=== PATIENT | female | born 1990 | race Caucasian/White ===

== ENCOUNTER 2022-06-29 16:04 | Outpatient (CLI) | payer OTHER, SELFPAY ==
--- NOTE | 2022-06-29 16:00 | CRLHL7_ITS ---
For Patients: As a result of the Century Cures Act, medical imaging exams and procedure reports are released immediately into your electronic medical record. You may view this report before your referring provider. If you have questions, please contact your health care provider. INDICATION: Evaluate anatomy. COMPARISON: none TECHNIQUE: Real time raygoza scale imaging of the fetus was performed as well as color Doppler analysis of the umbilical vessels. FINDINGS: Sonographic imaging demonstrates a single living intrauterine gestation. Fetus demonstrates a regular cardiac rate of 150 beats per minute. Fetus has a vertex position. The placenta lies anteriorly without evidence of placenta previa. The edge of the placenta is located 7.3 cm from the internal cervical os. Amniotic fluid volume appears normal. Single deepest vertical pocket: 4.2 cm. The cervix is closed and measures 5.2 cm in length. The composite ultrasound gestational age is calculated at 20 weeks 5 days with an estimated sonographic due date of 11/11/2022. The estimated weight is 356 grams which lies at the 32nd %. The following biometric measurements were obtained: Biparietal diameter: 4.8 cm/20 weeks 4 days 43rd% Head circumference: 18.0 cm/20 weeks 3 days 28th% Abdominal circumference: 15.0 cm/20 weeks 2 days 28th% Femur length: 3.4 cm/20 weeks 6 days 44th% The HC/AC ratio measures: 1.20 range (1.06-1.25) On anatomic survey, there is a normal appearance of the cerebral ventricles, cavum septi pellucidi, cisterna magna and cerebellum. The nose, lips, and facial profile appear normal. The cervical, thoracic and lumbar spine are well visualized and appear normal. There is a normal four-chamber heart view and the left and right ventricular outflow tracts appear normal. The diaphragm and stomach appear normal. The kidneys and bladder also appear normal. There is a normal three-vessel cord and cord insertion site. The four extremities appear normal. IMPRESSION: Normal OB ultrasound exam with concordance of clinical and sonographic dating. No intrinsic abnormalities noted on anatomic survey. Dictated by Hugo Logan MD @ 06/30/2022 8:59:07 AM (Electronically Signed)
--- OUTSIDE RECORDS SUMMARY | 2022-06-29 16:08 | XMS_ITS | Continuity of Care Document ---
:[address] [facility] Address Unavailable , Care Team Providers Name Role Phone Not Listed, Provider Primary Care Physician Unavailable Encounter [employer] Date(s): 04/01/22 - 04/01/22 [facility] Discharge Disposition: Home/Self Care Attending Physician: Sunil Montaño MD Admitting Physician: Sunil Montaño MD Care Team PersonnelName: Not Listed, Provider
--- OUTSIDE RECORDS SUMMARY | 2022-06-29 16:08 | XMS_ITS | Clinical Summary ---
:1990 Author Organization [facility] Address [address] [place] [address] Care Team Providers Name Role Phone Unavailable Primary Care Provider Unavailable Source Comments Patient records contain information from all sites at [facility]. For routine questions regarding patient records, call [phone] during business hours, M-F 8:00 AM - 5:00 PM Central Time. Record requests for emergency care only can be directed to [phone] at any time.[facility] Social History Tobacco Use Types Packs/Day Years Used Date Smoking Tobacco: Never Assessed Sex Assigned at Date Recorded Not on file Plan of Treatment Health Maintenance Due Date Last Done Comments Cervical Cancer Screening 1990 HIV Screening 1990 Hepatitis B Vaccines (1 of 1990 3 - 3-dose series) Hepatitis C Screening 1990 COVID-19 Vaccine (#1) 05/30/1991 DTaP,Tdap,and Td Vaccines 04/10/2008 04/09/2008, 04/27/1996 , (6 - Tdap) 06/03/1992, Additional history exists Depression Screening 08/08/2021 (Annual PHQ-2) Influenza Vaccine (#1) 2022 Pneumococcal vaccine (0-64 Aged Out No lo nger eligible years) based on patient 's age to complete this topic Insurance Payer Benefit Plan / Subscriber ID Effective Phone Address T ype Group Dates [facility] [id number] 2019-Pres [phone] [address] PPO OPEN ACCESS ent [address] [place] [address]
--- OUTSIDE RECORDS SUMMARY | 2022-06-29 16:08 | XMS_ITS | Clinical Summary ---
:1990 Author Organization [facility] [place] [address] Care Team Providers Name Role Phone Lucy Adkins MD Primary Care Provider Unavailab le Allergies Active Allergy Reactions Severity Noted Date Comments Amoxicillin-Pot Itching Clavulanate Fluticasone Other - Describe In 04/25/2007 voice ch kelley, Comment Field hoarseness, gl ands felt swollen Medications Medication Sig Dispensed Refills Start Date End Date Status Take 1 tablet by 0 04/16/2014 Ac tive vitamin-folic acid 1 mouth once daily. mg ( VITAMIN) tablet/capsule Breast Pump - Electric breast 1 Device 0 10/10/2018 Active PurchaseIndications: pump for home use. Normal spontaneous Gestation age at vaginal delivery delivery: 39.5 weeks. Reason for need: . Length of need: 12 months Active Problems Problem Noted Date Normal spontaneous vaginal delivery 05/24/2016 Supervision of normal intrauterine in multig ravida in first 02/04/2016 trimester Overview: A+. First AROM and 2nd degree juan carlos myrtle. Nitroglycerin to help with retained placenta. Second delivery uncomplicated. Rashad Fernandez RN at [facility] GBS+ Cefazolin Migraine, unspecified, without mention of intractable migraine without 06/16/2007 mention of status migrainosus Closed fracture of unspecified phalanx or phalanges of hand 02/23/2007 Overview: avulsion fracture, flexor tendon, middle phalanx, left 5th finger Allergic rhinitis, cause unspecified 02/20/2007 Resolved Problems Problem Noted Date Resolved Date Normal spontaneous vaginal delivery 10/08/201405/08 Anemia complicating 06/20/2014 03/27/2018 Supervision of normal first 04/16/2014 Overview: : Rashad GBS positive- review sensitivies- only s ensitive to ceftriaxone and vanc that the patient can take. Resistant to clindamycin. Decline flu due to egg allergy. Declines screening tests. Immunizations Name Administration Dates Next Due DTP-HIB 06/03/1992, 06/05/1991, 03/28/1991, 01/24/1991 DTaP 04/27/1996 HIB PRP-D (ProHIBIT) 03/07/1992 Hepatitis B (Peds) 12/17/1996, 08/22/1992, 07/18/1992 MMR 03/07/1992 Oral Polio Vaccine 04/27/1996, 06/03/1992, 03/28/1991, 01/24/1991 Td, Preservative Free (age >= 7 04/09/2008 Years) Tuberculin (PPD) 03/29/2014, 02/09/2013 Family History Medical History Relation Name Comments Good Health Brother 1 Asthma Brother 2 Good Health Father Cancer Maternal Grandfather type? Good Health Mother Good Health Sister Relation Name Status Comments Brother 1 Brother 2 Father Maternal Grandfather Mother Sister Social History Tobacco Use Types Packs/Day Years Used Date Never Smoker Smokeless Tobacco: Never Used Tobacco Cessation: Counseling Given: Yes Alcohol Use Standard Drinks/Week Comments No 0 (1 standard drink = 0.6 oz pure alcoho l) Sex Assigned at Date Recorded Not on file Obstetrics History Para Term AB IAB SAB Ectopic Multiple Living Live Births 3 3 3 0 0 0 0 0 0 3 3 Date Outcome GA Total Labor/2nd/3rd Weight Sex Delivery Anes PTL Nicol A 1 A5 Name Clin Labor 10/08 Term 40w 3.57 kg M Vag April 9 9 0d (7 lb TANIKA Waters 13.9 (ASHL oz) EY) Delivery Location: [facility] 05/24/2016 Term 39w1d 3.24 kg M Vag None N Living [address] (7 lb DAYANARA Mo hrbacher 2.4 oz) Complications: None Delivery Location: [facility] 10/09/2018 Term 39w4d 0h 3.29 F Vag None N Living 6 8 S IMONES,BG Mohrbacher 16m/0h kg (7 DAYANARA 13m lb 4 oz) Complications: None Delivery Location: [facility] ([facility]) Last Filed Vital Signs Vital Sign Reading Time Taken Comments Blood Pressure 106/58 12/04/2018 3:06 PM CDT Pulse 78 12/04/2018 3:06 PM CDT Temperature 36.7 ??C (98 ??F) 10/09/2018 7:50 PM TRANSFER TABLE OPERATOR Respiratory Rate 18 10/09/2018 7:50 PM TRANSFER TABLE OPERATOR Oxygen Saturation 100% 10/08/2018 2:16 PM TRANSFER TABLE OPERATOR Inhaled Oxygen Concentration - - Weight 64.9 kg (143 lb) 12/04/2018 3:06 PM CDT Height 160 cm (5' 3) 10/08/2018 2:27 PM TRANSFER TABLE OPERATOR Body Mass Index 25.33 10/08/2018 2:27 PM TRANSFER TABLE OPERATOR Plan of Treatment Health Maintenance Due Date Last Done Comments COVID-19 vaccine series (#1) 05/30/1991 Tdap 2001 Hepatitis C screening for age 0411/28/2008 18-79 Tetanus booster 04/09/2018 04/09/2008 BMI (ht and wt on same day) for 09/15/2019 09/15/2018, 03/09, age 18+ 03/27/2018, Additional history exists Depression screening for age 12+ 12/05/2019 12/04/2018, , 06/21/2016 Pap test for age 21-65 03/27/2021 03/27/2018, 04/16/2014 Influenza for age 9-49 04/08/2022 HIV for age 15-65 Completed 03/27/2018, 11/07/2015, 04/04/2014 Results Not on filefrom Last 3 Months Insurance Payer Benefit Plan / Subscriber ID Effective Dates Phone Addre ss Type Group WC WORKERS CAMILA PATRICK [id number] 2020-Prese [address] [place] [address] HEALTH [employer]INCTIONS [id number] 2017-Presen [id number] [place] [address] SherryDayanara Avina Workers Comp Self 1990 [address] (Home) [place] [id number] HaseeblanieDayanara Avina Personal/Family Self 1990 [id number] (Home) [place] [id number] Advance Directives Latest Code Status on File Code Status Date Activated Date Inactivated Comments Full Code 10/09/2018 3:15 AM 10/10/2018 3:18 PM Full Code 05/24/2016 6:58 AM 05/25/2016 3:57 PM Full Code 05/23/2016 10:41 PM 05/24/2016 6:58 AM Code Status Discussion: Not Discussed Full Code 05/23/2016 9:56 PM 05/23/2016 10:41 PM Code Status Discussion: Not Discussed Full Code 10/07/2014 4:47 PM 10/08/2014 5:23 AM Care Teams Plastic Mould Maker Relationship Specialty Start Date End Date Lucy Adkins MD PCP - General Family Practice 04/26/19
--- OUTSIDE RECORDS SUMMARY | 2022-06-29 16:09 | XMS_ITS | Encounter Summary ---
:1990 Author Organization [facility] Address [address] [place] [address] Care Team Providers Name Role Phone Unavailable Primary Care Provider Unavailable Encounter Details Date Type Department Care Team Description 09/19/2001 Hospital Encounter HX [facility] ENT Koko Grove M.D. 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 Erik Nichole [id number] 09-19-01CC: Dr. Krause in [facility].Dayanara is a pleasant 10 ? y/o female who presents with her mom today self referred.Dayanara and her mom give a history of chronic sore throat since the fall. She apparently had much more brief sore throat the previous winter but really was asymptomatic through the summer. Mom says she compla ins of a sore throat on a daily basis. It varies from mild to moderately severe. She home schools s o has not missed any school from this and is usually not unwell. She does occasionally have some ear pain with this. There is some mild relief with Tylenol. She was treated with a 10 day course with a subsequent daily dose for a month of Keflex with no convincing improvement in her sore throat. (Pre scribed July 31). No rhinorrhea or nasal obstruction. She does have some mild discomfort with s wallowing with her more painful episodes but otherwise no dysphagia or shortness of breath. She has no trouble swallowing or with chronic loud snoring. No history of apneic events. No concerns about her voice.REVIEW OF SYSTEMS:Constitutional - some fatigue, otherwise, no fever, chills or weight l oss.Neurologic - she has had headaches in the past which were evaluated at her primary care facility . No other neurologic symptoms.GI - negative. No heartburn.PAST MEDICAL HISTORY: She is otherwi se generally well.PAST SURGICAL HISTORY: None.FAMILY HISTORY: No family history of bleeding disor ders or anesthetic trouble.SOCIAL HISTORY: She is home schooled.MEDICATIONS: None.ALLERGIES: AU GMENTIN (hives).ON EXAMINATION: Dayanara looks well.Vitals - noted.Otoscopic - healthy mobile TM's bilaterally. No effusion.Nose - patent, healthy mucosa.Oral cavity - normal.Oropharynx - shows g enerous 2+ scarred noninflamed tonsils bilaterally.MIRROR EXAM:Nasopharynx - shows generous benign appearing adenoid tissue, noninflamed. No history of nasal obstruction. Vocal cords are healthy an d mobile. The piriforms are not visualized.Neck - no cervical lymphadenopathy or masses.Thyroid an d salivary glands - no enlargement.Voice - normal. ASSESSMENT:1. Chronic sore throat - negative S trep test in July.PLAN:1. Discussed options of continued observation to see if she resolves sp ontaneously again this summer.2. Option of 21 day course of Clindamycin was offered. I wouldn't rec ommend tonsillectomy at this time but if she improves and recurs following Clindamycin, would be bett er indication that tonsillectomy may provide some improvement. 3. I also asked them to consider how severe and problematic these symptoms are for her. They would like to try the Clindamycin however.4. Risks of GI upset and diarrhea were discussed in which case if this persists after holding the medic ation, she needs to be assessed. Will try 3 week course and I asked them to contact me if she has co ntinued problems.5. Mom requested that I send a copy to Dr. Krause, her primary care physician.Oralia Grove M.D./Reyes: 09-19-01T: 02-18-02 Source: [facility] Document Id: [id number] documented in this encounter Plan of Treatment Not on filedocumented as of this encounter Visit Diagnoses Not on filedocumented in this encounter
--- OUTSIDE RECORDS SUMMARY | 2022-06-29 16:09 | XMS_ITS | Encounter Summary ---
:1990 Author Organization [facility] Address [address] [place] [address] Care Team Providers Name Role Phone Unavailable Primary Care Provider Unavailable Encounter Details Date Type Department Care Team Description 03/17/2006 Hospital Encounter [facility]X [facility] Zena Lara M.D. Social History Tobacco Use Types Packs/Day Years Used Date Smoking Tobacco: Never Assessed Sex Assigned at Date Recorded Not on file documented as of this encounter Progress Notes Sonia Lara M.D. - 03/17/2006 3:40 PM CDT [id number] CLINIC ENCOUNTER SUBJECTIVE: Dayanara Valencia is a 15-year-old who comes in today with concerns about left lower leg pain. This was particularly concerning to the family because she had a spiral fracture of the left tibia 2 1/2 years ago after slipping on the ice. She had some difficulty with healing. She was followed by Dr. Emir Moya of Orthopedics in [place] and previous care was in [place]. She seemed to heal entirely although they have noted a leg length discrepancy. She had no noted acute injury or trauma. No sudden change in activity level. No limb eversion. She denies feeling ill. No fevers, chills, sweats, rashes, or other joint pain. She has been limping for about four days and using crutches. OBJECTIVE: GENERAL: On physical exam, she is alert and quite comfortable. MUSCULOSKELETAL: She does have a leg length discrepancy noted, not measured accurately but approximately 1 inch. She has full range of motion at the hips, knees, and ankles without any discomfort. She has some pain to deep palpation laterally on the leg. There is no superficial skin changes, bruising, edema, and soles of the feet are unremarkable. IMAGING: The comparison films are not available. AP (anteroposterior) and lateral view of the left leg shows no change in the bony cortex. No evidence of improper healing or new fracture. ASSESSMENT: Leg pain of unknown etiology. Leg length discrepancy. PLAN: We discussed continuing symptomatic treatment and crutches for non-weight bearing and weight bearing only if tolerated. Use ibuprofen for pain. We will await the radiologists formal reading of the x-ray. Offered referral to [facility] for discussion of her leg length discrepancy. Outline briefly the main options for significant leg length discrepancy with shoe-lift or shoe compensation being the treatment of choice with lesser leg length discrepancy. If her pain fails to resolve, we will try to facilitate sooner orthopedic examination. VITAL SIGNS: HEENT: NECK: LUNGS: CARDIOVASCULAR: ABDOMEN: EXTREMITIES: SKIN: Doug Pate/darlene cc: Source: [facility] Document Id: [id number] Electronically signed by Conversion, [facility] Security Agent [id number] at 01/10/2017 4:44 PM CDT Sonia Lara M.D. - 03/17/2006 3:40 PM CDT [id number] Document Contains Addenda Insert dictation. Addendum: Menarche at time of previous fracture 2.5 years ago - discussed relevance to growth. Source: [facility] Document Id: [id number] Electronically signed by Conversion, [facility] Security Agent [id number] at 01/10/2017 4:44 PM CDT documented in this encounter Plan of Treatment Not on filedocumented as of this encounter Visit Diagnoses Not on filedocumented in this encounter
--- OUTSIDE RECORDS SUMMARY | 2022-06-29 16:09 | XMS_ITS | Encounter Summary ---
:1990 Author Organization [facility] Address [address] [place] [address] Care Team Providers Name Role Phone Unavailable Primary Care Provider Unavailable Encounter Details Date Type Department Care Team Description 05/31/2021 Admin Visit Department of Family Koko Vargas, Medicine, [facility] in [facility] [address] [facility] [address] [place] [address] [place] [address] [phone] Social History Tobacco Use Types Packs/Day Years Used Date Smoking Tobacco: Never Assessed Sex Assigned at Date Recorded Not on file documented as of this encounter Plan of Treatment Not on filedocumented as of this encounter Visit Diagnoses Not on filedocumented in this encounter Additional Health Concerns Infection Onset Date Last Indicated Resolved Time COVID19 Pending 05/31/2021 05/31/2021 06/01/2021 1:53 PM CDT documented as of this encounter
--- OUTSIDE RECORDS SUMMARY | 2022-06-29 16:09 | XMS_ITS | Encounter Summary ---
:1990 Author Organization [facility] Address [address] [place] [address] Care Team Providers Name Role Phone Unavailable Primary Care Provider Unavailable Encounter Details Date Type Department Care Team Description 07/08/2003 Hospital Encounter HX [facility] ENT Koko Grove M.D. [address] [place], [place] [phone] (Wo rk) Social History Tobacco Use Types Packs/Day Years Used Date Smoking Tobacco: Never Assessed Sex Assigned at Date Recorded Not on file documented as of this encounter Progress Notes Conversion, Historical Provider Ser - 07/08/2003 9:15 AM CST [id number] Addended by: MARTINA OVERTON on: 07/12/2003,8:39 AM Comment: TranscriptionModules accepted: Robert nj NotesSUBJECTIVE: Dayanara returns to clinic today for routine postop check for tonsillectomy 06/19/2003 for chronic tonsillitis.This 12 year old had a couple of rough days with nausea followin g the surgery but that resolved early on and she is doing fantastic now, back to normal activity.Scarlett ngo did have an episode of Dixon in the last year which was excluded from consideration for her surgery. Some preoperative blood work indicated and Alk Phos elevated at 321 and will have her recheck this with her Primary doctor.OBJECTIVE: On examination, tonsillar fossae are very well healed. IMPRES MARINA:1. They have no concerns.2. I will see her back on a prn basis.Koko Groev M.D., [facility] /kaaD: 07/08/2003T: 07/12/2003CC: Jovana Mathews. Source: [facility]FPORTHXTRANSXSYS Document Id: [id number] documented in this encounter Miscellaneous Notes Miscellaneous - Conversion, Historical Provider Ser - 07/08/2003 9:15 AM STAMP PRESSER [id number] July 08, 2003 Dr. Sonam Engle [address] [place] [address] RE: Dayanara Valencia [address] [place] [address] EMR# [id number] Dear Dr. Engle: I saw Dayanara back for routine postop check following her tonsillectomy. She is doing great today andappears well healed. Preop evaluation indicated an elevated Alk phos at 321 and I would recommend that she follow up withyou for consideration of any repeat lab work or investigations in this regard. Kindest Regards, Bambi Vail., [facility] Otolaryngology - Head and Neck Surgery /[facility] Enclosure Source: [facility]FP[facility]XTRANSXRTFSYS Document Id: [id number] documented in this encounter Plan of Treatment Not on filedocumented as of this encounter Visit Diagnoses Not on filedocumented in this encounter
--- OUTSIDE RECORDS SUMMARY | 2022-06-29 16:09 | XMS_ITS | Encounter Summary ---
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 [id number], ASHLEY : 90PROCEDURE/OPERATIVE REPORTPREOPERATIVE DIAGNOSIS:Chronic tonsillitis.POSTOPERATIVE DIAGNOSIS:Chronic tonsillitis. PROCEDURE: TONSILLECTOMYSurgeon: Dr. Grove.INDICATIONS: Dayanara has a several year history of sore throats. She did have an episode of mono earlier in the year which seems to have resolved, henley kenton she is back to her baseline low grade sore throats. Options were discussed including further obs ervation with possible spontaneous resolution or tonsillectomy and they wish to proceed with tonsille ctomy after discussion with the risks and benefits. She had already failed a 21 day course of Clinda mycin due to GI upset and did not wish to proceed with further antibiotics. Preop platelets 239,000, hemoglobin 12.9, INR 1.04, PTT 29.3. Liver function tests were normal with the exception of alkalin e phosphatase at 321. PROCEDURE: The patient was brought to the operating room and placed under ge neral anesthesia. In supine position she was intubated and draped in a routine fashion for tonsillect cesar. The table was turned. Under headlight illumination the oral gag retractor was placed, engaged a nd suspended from the Wilkerson tray. Starting on the right the tonsil was medialized with a grasping for ceps. Blunt, sharp and bipolar cautery dissection were used to identify the tonsillar fossa and the tonsil was dissected from superior to inferior along its capsule. There was a fair degree of scarrin g. The tonsil was removed and sent for pathology. The left tonsil was removed in an identical fas hion. Estimated blood loss was approximately 15 ml. She was allowed to lighten and was she was extub ated in the operating room. Koko Grove M.D. [facility]EROzzie/Tirso: 06/19/03T: 06/19/03 Source: [facility] RWHXTRANSXSYS Document Id: [id number] documented in this encounter Plan of Treatment Not on filedocumented as of this encounter Visit Diagnoses Not on filedocumented in this encounter
--- OUTSIDE RECORDS SUMMARY | 2022-06-29 16:09 | XMS_ITS | Encounter Summary ---
:1990 Author Organization [facility] Address [address] [place] [address] Care Team Providers Name Role Phone Unavailable Primary Care Provider Unavailable Encounter Details Date Type Department Care Team Description 07/08/2003 Hospital Encounter HX [facility] ENT Provider, Historic al Social History Tobacco Use Types Packs/Day Years Used Date Smoking Tobacco: Never Assessed Sex Assigned at Date Recorded Not on file documented as of this encounter Miscellaneous Notes Telephone Encounter - Conversion, Historical Provider Ser - 07/08/2003 12:00 AM CST [id number] >> BELLO BURRIS [facility] Jul 08, 2003 3:25 PM >> CALL RECEIVED. Contact: Mom called per request of Dr Grove to remind her to follow up at PCP in [place] regarding Vishal alkaline phosphatase abnormal lab Source[facility] Document Id: [id number] documented in this encounter Plan of Treatment Not on filedocumented as of this encounter Visit Diagnoses Not on filedocumented in this encounter
--- OUTSIDE RECORDS SUMMARY | 2022-06-29 16:09 | XMS_ITS | Encounter Summary ---
:[address] [facility] Address [address] [place] [address] Care Team Providers Name Role Phone Unavailable Primary Care Provider Unavailable Encounter Details Date Type Department Care Team Description 12/09/2008 Hospital Encounter [facility] Jeimy Aragon M.D. [address] [place], [place] [phone] (Wo rk) Social History Tobacco Use Types Packs/Day Years Used Date Smoking Tobacco: Never Assessed Sex Assigned at Date Recorded Not on file documented as of this encounter Progress Notes Heber Aragon M.D. - 12/09/2008 2:20 PM CDT [id number] CLINIC ENCOUNTER HISTORY: Dayanara is an 18-year-old woman who is here in regards to both of her thumbs. She sustained an injury to both of her thumbs when she got a cat bite near the base near the region just proximal to metacarpophalangeal joints. The right one had an injury to it first and subsequently the left one became injured. The right has remained more stiff and painful for her since that time. She had seen a hand surgeon in the past which had suggested an MRI of her hand and wrist but felt there was nothing to further treat this other than with some exercises. She did these exercises but the stiffness at the metacarpophalangeal joints have remained. She's had other joints that have been aching and painful on a regular basis including her wrist as well as persistent troubles with other upper extremity joints being stiff and painful. She denies having any history of Lyme's disease or tick bite that she is aware of as well. PHYSICAL EXAM: Examination of her thumbs - there is no significant swelling appreciated. There is tenderness to palpation over the metacarpophalangeal joint. There is some slight limitation of motion at flexion of this joint. Bradford's test is negative and there is no tenderness overlying the radial styloid. She has full extension of the metacarpophalangeal joints bilaterally. RADIOGRAPHS: X-rays of both of her thumbs are obtained today demonstrate no abnormality of either thumbs at the IP or metacarpophalangeal joints. ASSESSMENT AND PLAN: Dayanara is an 18-year-old woman who has persistent troubles with pain at the metacarpophalangeal joints of both of her hands with the right worse than the left. At this point in time I would have her obtain a sed rate, CRP, rheumatoid factor, Lyme's screen and to see me back after this is obtained. We will discuss continuing treatment options. If all of her laboratory tests are negative, we can consider an injection of a corticosteroid to the area of maximal pain to see if that improves her symptoms. She had this done on the left side and that seemed to improve things substantially and we might consider that for the right side. Otherwise referral on to see a hand and wrist specialist or possibly a fire watchman depending on the laboratory findings might be suggested. We will see her back in another week or two after her brother has follow up in regards to an MRI of his elbow. The patient's visit today was greater than 20 minutes long with more than half of this counseling in regards to treatment options for her persistently painful thumbs. Heber Aragon M.D. DAMARI/floridalma cc: Source: [facility] RWHXTR[facility]SYS Document Id: [id number] Electronically signed by Fior, [facility] Motorboat Mechanic Helper [id number] at 01/09/2017 4:25 PM CDT documented in this encounter Plan of Treatment Not on filedocumented as of this encounter Visit Diagnoses Not on filedocumented in this encounter
--- OUTSIDE RECORDS SUMMARY | 2022-06-29 16:09 | XMS_ITS | Encounter Summary ---
:1990 Author Organization [facility] Address [address] [place] [address] Care Team Providers Name Role Phone Unavailable Primary Care Provider Unavailable Encounter Details Date Type Department Care Team Description 09/27/2001 Hospital Encounter HX [facility] Koko Hayes M.D. [address] [place] [phone] (Wo rk) Social History Tobacco Use Types Packs/Day Years Used Date Smoking Tobacco: Never Assessed Sex Assigned at Date Recorded Not on file documented as of this encounter Miscellaneous Notes Telephone Encounter - Conversion, Historical Provider Ser - 09/27/2001 12:00 AM CST [id number] >> BELLO Hurd Sep 27, 2001 4:38 PM >> CALL RECEIVED. Contact: phone call and results given of negative strep culture, follow up as needed per Dr Grove Source: [facility] Document Id: [id number] documented in this encounter Plan of Treatment Not on filedocumented as of this encounter Visit Diagnoses Not on filedocumented in this encounter
--- OUTSIDE RECORDS SUMMARY | 2022-06-29 16:09 | XMS_ITS | Encounter Summary ---
:1990 Author Organization [facility] Address [address] [place] [address] Care Team Providers Name Role Phone Unavailable Primary Care Provider Unavailable Encounter Details Date Type Department Care Team Description 03/24/2006 Hospital Encounter HX NO MAPPING Provider, Historical Social History Tobacco Use Types Packs/Day Years Used Date Smoking Tobacco: Never Assessed Sex Assigned at Date Recorded Not on file documented as of this encounter Plan of Treatment Not on filedocumented as of this encounter Visit Diagnoses Not on filedocumented in this encounter
--- OUTSIDE RECORDS SUMMARY | 2022-06-29 16:09 | XMS_ITS | Encounter Summary ---
:1990 Author Organization [facility] Address [address] [place] [address] Care Team Providers Name Role Phone Unavailable Primary Care Provider Unavailable Encounter Details Date Type Department Care Team Description 12/27/2008 Hospital Encounter HX [facility] Jeimy Aragon M.D. [address] [place], [place] [phone] (Wo rk) Social History Tobacco Use Types Packs/Day Years Used Date Smoking Tobacco: Never Assessed Sex Assigned at Date Recorded Not on file documented as of this encounter Progress Notes Heber Aragon M.D. - 12/27/2008 10:20 AM CDT [id number] CLINIC ENCOUNTER HISTORY: Dayanara is an 18-year-old girl who is here in regard to her thumbs. She has had problems with bilateral thumb pain after a camp injury. The left one has been somewhat better than the right and the left one she previously had an injection to. Most of the pain seems to be around the MCP joint and slightly distal to this. There is not any catch appreciated to the thumb. We sent her for some laboratory values and these were discussed with her today including a Lyme titer as well as some other screening labs and these were all negative. PHYSICAL EXAMINATION: Examination of her right thumb: She has significant tenderness directly overlying the dorsum of the thumb overlying the MCP joint as well as the IP joint. Range of motion is quite good, however. ASSESSMENT AND PLAN: Dayanaar is an 18-year-old girl who has persistent troubles with thumb pain. My suggestion is to try a cortisone injection in this area of maximal pain near the MCP (metacarpophalangeal) joint and see if she gets resolution of her symptoms as she has had improvement on the contralateral side but also referring her on to see Dr. Mcknight as I am not sure where this pain is coming from clearly. Her thumb was prepped with iodine. The needle was then placed in the area of maximal tenderness. An injection of 0.5 mL of lidocaine and 0.5 mL of Decadron were placed into the tendon in this region. She tolerated this well. We will plan to have her set up an appointment to see Dr. Mcknight in the future to evaluate this persistent pain. Heber Aragon M.D. [facility]/law cc: Source: [facility]ANTSHXTRANSXSYS Document Id: [id number] Electronically signed by Conversion, [facility] Carbonizer Tester [id number] at 01/09/2017 4:25 PM CDT documented in this encounter Plan of Treatment Not on filedocumented as of this encounter Visit Diagnoses Not on filedocumented in this encounter
--- OUTSIDE RECORDS SUMMARY | 2022-06-29 16:09 | XMS_ITS | Encounter Summary ---
:1990 Author Organization [facility] Address [address] [place] [address] Care Team Providers Name Role Phone Unavailable Primary Care Provider Unavailable Encounter Details Date Type Department Care Team Description 05/13/2015 Hospital Encounter HX [facility] Jeevan Campos M .D., M.P.H. [address] [place] [phone] (Wo rk) Social History Tobacco Use Types Packs/Day Years Used Date Smoking Tobacco: Never Assessed Sex Assigned at Date Recorded Not on file documented as of this encounter Nursing Notes Lucy Arevalo L.PLauraN. - 05/13/2015 2:02 PM CDT Nurse Only Documentation Nurse Only Documentation Entered On: 05/13/2015 14:02 CDT Performed On: 05/13/2015 14:02 CDT by LUCY AREVALO LPN Nurse Only Documentation Nurse Only Visit Documentation : Pre employment uds for [employer]. Uneventful collection. LUCY AREVALO LPN - 05/13/2015 14:02 CDT Source: [employer] [facility] [employer] [facility] POWERCHART Document Id: [id number]!3 documented in this encounter Plan of Treatment Not on filedocumented as of this encounter Visit Diagnoses Not on filedocumented in this encounter
--- OUTSIDE RECORDS SUMMARY | 2022-06-29 16:09 | XMS_ITS | Encounter Summary ---
:1990 Author Organization [facility] Address [address] [place] [address] Care Team Providers Name Role Phone Unavailable Primary Care Provider Unavailable Encounter Details Date Type Department Care Team Description 08/08/2008 Hospital Encounter HX NO MAPPING Provider, Historical Social History Tobacco Use Types Packs/Day Years Used Date Smoking Tobacco: Never Assessed Sex Assigned at Date Recorded Not on file documented as of this encounter Miscellaneous Notes Miscellaneous - Fior, Historical Provider Ser - 08/08/2008 12:00 AM DEBURRER [id number] 06/27/2009 - Records faxed/mailed to Dr Jose Elias Kamara, [facility] @[phone], and mailedw/[employer] of [employer], [place], [place]. Source: [facility]XRTFS[facility] Document Id: [id number] documented in this encounter Plan of Treatment Not on filedocumented as of this encounter Visit Diagnoses Not on filedocumented in this encounter
--- OUTSIDE RECORDS SUMMARY | 2022-06-29 16:09 | XMS_ITS | Encounter Summary ---
:1990 Author Organization [facility] Address [address] [place] [address] Care Team Providers Name Role Phone Unavailable Primary Care Provider Unavailable Encounter Details Date Type Department Care Team Description 05/03/2003 Hospital Encounter HX [facility] ENT Koko Grove M.D. [address] [place], [place] [phone] (Wo rk) Social History Tobacco Use Types Packs/Day Years Used Date Smoking Tobacco: Never Assessed Sex Assigned at Date Recorded Not on file documented as of this encounter Progress Notes Conversion, Historical Provider Ser - 05/03/2003 1:30 PM CDT [id number] Addended by: BRODY OCHOA on: 05/13/2003,11:30 AM Comment: TranscriptionModules accepted: Angelo flores Anthony returns to the clinic today with her mom for follow-up of her chronic sore throats. I saw her last September 2001 for chronic sore throat which had previously been at least six months b ut mom felt even longer dating back probably at least a couple of years now. She continued to have a very frequent mild to moderate sore throats the subsequent year. It would often drag her down. She was home-schooled and did not miss any school but she didn't feel well. It would come and go. She has had most often negative strep tests. She is followed by Dr. Engle in [place]. They are not sure i f they tried the 21-day course of Clindomycin at my last visit but she has had some severe GI upset w ith antibiotics and is very reluctant to use anymore if not absolutely necessary.She did have [place] ucleosis diagnosed in the spring. She has felt well in that regard for several months; however is dimas k to her baseline frequent/chronic sore throats. Today she presents with a two- day exacerbation of sore throat, particularly on the right moderate severity, with some increased nasal congestion.REVI EW OF SYSTEMS:Hem: No history of easy bruising or bleeding problems. GI: Very infrequent heartburn. PAST MEDICAL HISTORY:Otherwise healthy. No history of heart or lung disease. No asthma, murmurs, etc. PAST SURGICAL HISTORY:None.FAMILY HISTORY:No history of coagulopathy or general anesthetic problems. No malignant hypothermia. ON EXAMINATION:General: She looks well. Otoscopic: Normal. Nose: Mild nasal congestion and inflammation. Some scant mucous.Oral Cavity: Normal.Oropharynx: 2+ irregular scared tonsils bilaterally. No acute inflammation or purulence. The right tonsil is swabbed . Neck: No cervical lymphadenopathy or masses. ASSESSMENT:Chronic sore throat.PLAN:For 15 of o ur 25 minutes together today, discussed at length possible etiology and treatment. She had her typica l chronic sore throats right up until this spring. I did explain that mono is certainly an additional issue which would not be well served by tonsillectomy; however she is back to her steady state of ch ronic recurrent exacerbations of sore throat at present. A strep swab was taken today to see if she needs any antibiotics acutely but her nasal symptoms are quite minimal.We had a long conversation about options of continuing to wait this out and this cycle may yet resolve at her age. A three week trial of antibiotics was also discussed but they are not open to this idea given her problems in the past. Finally tonsillectomy with the risks of general anesthetic, infection, postoperative pain, ne ed for decreased activity for two weeks, and most importantly the risk of bleeding which can be sever e and life threatening during the two weeks post operatively. They have thought about this a lot an d both Dayanara and mom would like to proceed with tonsillectomy. We can tentatively schedule this for they think June and plan a preop evaluation by Dr. Engle the week the week prior. I would like CB C with differential, platelets, INR, PT, and PTT. The blood work is only because of her recent Mononu cleosis in the spring. I typically don't obtain preoperative blood work unless otherwise indicated. If they should change there mind about this surgery, they can certainly cancel at any time and as I said observation would be reasonable but given her duration and severity of symptoms, I also believe tonsillectomy is a reasonable option with an excellent chance of reducing her morbidity. Questions we re answered. They are invited to call at any time. Otherwise I will see them the day of surgery. Apple bowman and verbal consent is obtained.Koko Grove M.D., GLADYS/darleneD: 05/03/2003T: 05/13/2003 CC: Dr. Engle in [place] per Dr. Grove. Source: [facility] Document Id: [id number] documented in this encounter Plan of Treatment Not on filedocumented as of this encounter Visit Diagnoses Not on filedocumented in this encounter
--- OUTSIDE RECORDS SUMMARY | 2022-06-29 16:09 | XMS_ITS | Encounter Summary ---
:1990 Author Organization [facility] Address [address] [place] [address] Care Team Providers Name Role Phone Unavailable Primary Care Provider Unavailable Encounter Details Date Type Department Care Team Description 06/20/2003 Hospital En[facility] E[facility] Nilton Grove M.D. [address] [place], [place] [phone] (Wo rk) Social History Tobacco Use Types Packs/Day Years Used Date Smoking Tobacco: Never Assessed Sex Assigned at Date Recorded Not on file documented as of this encounter Miscellaneous Notes Telephone Encounter - Conversion, Historical Provider Ser - 06/20/2003 12:00 AM CST [id number] Addended by: MARTINA OVERTON on: 06/25/2003,8:59 AMModules accepted: Progress Notes>> NILTON Avina Monse Jun 20, 2003 12:12 PM>> CALL RECEIVED. Contact: SUBJECTIVE: I called Dayanara to see how she is doing, also to call in a postop antibiotic. She had hives with previous Augmentin and she had a l ot of GI upset with Clindamycin in the past. OBJECTIVE: I will call in some Ceftin 250 mg elixir po BID for 10 days for postop prophylaxis. Mom says she is drinking sips but not much else. She is taking pain medication every 4 hours, fairly uncomfortable toward the end of that 4 hours.I encour aged her to try and get in some electrolytes and sugar, possibly Gatorade, Santy- Aid, etc. Food can c ome as she is comfortable but she certainly needs to be drinking enough to be peeing and mom said she is. I am going to be away for 3 days. I reiterated if there is any emergency, their closest ER i s [place]. They should start there and the [facility] does provide back-up when I am un available. If it is an issue of hydration or pain management, she could call her primary physician's service, (Dr. Engle). She had no further questions. Nilton Grove M.D., [facility]ENTEROzzie/Reyes: 003T: 06/25/2003 Source: [facility] RWHXTRANSXSYS Document Id: [id number] documented in this encounter Plan of Treatment Not on filedocumented as of this encounter Visit Diagnoses Not on filedocumented in this encounter
--- OUTSIDE RECORDS SUMMARY | 2022-06-29 16:09 | XMS_ITS | Encounter Summary ---
:[address] [facility] Address [address] [place] [address] Care Team Providers Name Role Phone Unavailable Primary Care Provider Unavailable Encounter Details Date Type Department Care Team Description 06/19/2003 Hospital Encounter HX NO MAPPING Koko Grove M.D. [address] [place] [phone] (Wo rk) Social History Tobacco Use Types Packs/Day Years Used Date Smoking Tobacco: Never Assessed Sex Assigned at Date Recorded Not on file documented as of this encounter Plan of Treatment Not on filedocumented as of this encounter Visit Diagnoses Not on filedocumented in this encounter
--- OUTSIDE RECORDS SUMMARY | 2022-06-29 16:09 | XMS_ITS | Encounter Summary ---
:1990 Author Organization [facility] Address [address] [place] [address] Care Team Providers Name Role Phone Unavailable Primary Care Provider Unavailable Reason for Visit Reason Onset Date Comments Testing For Upper Respiratory Virus Symptoms 05/31/2021 Encounter Details Date Type Department Care Team Description 05/31/2021 External Outreach Department of Oarlia Gomez Contact With And Medicine, [facility] (Suspected) Exposure Clinic, in [address] To COVID-19 (Primary [place], [place] Dx) [address] [facility] [address] [place], [place] [phone] (Work) [phone] Social History Tobacco Use Types Packs/Day Years Used Date Smoking Tobacco: Never Assessed Sex Assigned at Date Recorded Not on file documented as of this encounter Progress Notes Nish Eli, RLauraN. - 05/31/2021 3:51 PM CDT Encounter created for symptomatic infectious disease screening with possible COVID, Influenza, RSV, and/or Group A Strep testing. documented in this encounter Miscellaneous Notes Result Encounter Note - Marialuisa Machuca R.N. - 06/01/2021 2:14 PM CDT The patient will be contacted if they are eligible for Monoclonal Antibody Infusion (MASS 1 or greater) and/or Remote Patient Monitoring (MASS 3 or greater). The [facility] Covid Care Team ([facility]WCCT) sends general guidance about COVID-19 to all patients by letter or portal, except when a patient is hospitalized or resides in a long term. [facility] will call all adult patients at highest risk for severe complications of COVID-19 (MASS 3 or greater), those without an online services account, and those who require an full time staff interpreter. Any patient with a MASS score 1 or greater or a COVID-19 score 1 or greater may be at higher risk ofsevere disease. These patients will follow up directly with primary care. The primary care team willdecide if the patient needs a phone call or a follow up portal message to assess symptom severity, provide individualized guidance on symptom monitoring or symptom management, or to reinforce when to se ek care. [facility] encourages patients to follow up with their PCP with questions, worsening symptoms, or for symptom management. For questions, contact the [facility]id Care Team ([facility]): Pager: [phone] In basket: P RST/[facility] COVID-19 POSITIVE Covid Care e-consult Components of the Monoclonal Antibody Selection Score (MASS) Compromised Immune System/Transplant = 4 points Chronic Kidney Disease on Dialysis = 4 points Age greater than or equal to 55 and chronic pulmonary disease = 3 points Age greater than or equal to 65 = 2 points Age greater than or equal to = 2 points Diabetes = 2 points Age greater than or equal to 55 AND cardiovascular disease = 2 points Age greater than or equal to 55 and hypertension = 1 point NOTE: At the time of testing, patients are instructed to obtain the result by calling the [facility] result line or by checking the online services account. documented in this encounter Plan of Treatment Not on filedocumented as of this encounter Procedures Procedure Name Priority Date/Time Associated Diagnosis Comme nts SARS CORONAVIRUS-2 Routine 05/31/2021 4:19 PM Contact With And Results for this RNA, V CDT (Suspected) Exposure procedu re are in To COVID-19 the results section. documented in this encounter Results (ABNORMAL) SARS Coronavirus-2 RNA, V Symptomatic (05/31/2021 4:19 PM CDT) [facility] Method Time Signature SARS-CoV-2 Swab, 06/01/2021 ECLR Specimen Nasopharynx 1:53 PM CDT Source SARS CoV-2 Detected (A) Undetected 06/01/2021 ECLR RNA, TMA 1:53 PM CDT Comment: SARS-CoV-2 RNA present. ----ADDITIONAL INFORMATION---- This molecular amplification test was pe rformed using the Aptima SARS-CoV-2 assay ([employer] on the Viade[employer] tem under emergency use authorization (EUA) by the U.S. Food and Drug Administ ration. Fact sheets for this EUA assay can be fo und at the following links: For Healthcare Providers: https://www.fd a.gov/media/517564/download For Patients: https://www.fda.gov/media/ 081557/download Specimen Anatomical Collection Method Collection Time Receive d Time (Source) Location / / Volume Laterality Varies 05/31/2021 4:19 PM 9:48 (Nasopharynx) CDT PM CDT Koko Vargas P.A.-C. LAB MICROBIOLOGY - GENERAL O [place] Performing Organization Address City/State/ZIP Code Phon e Number [facility] [address] [place] [phone] [facility] [place] [address] [address] documented in this encounter Visit Diagnoses Diagnosis Contact With And (Suspected) Exposure To COVID-19 - Primary documented in this encounter Additional Health Concerns Infection Onset Date Last Indicated Resolved Time COVID19 Pending 05/31/2021 05/31/2021 06/01/2021 1:53 PM CDT documented as of this encounter
--- OUTSIDE RECORDS SUMMARY | 2022-06-29 16:09 | XMS_ITS | Encounter Summary ---
:1990 Author Organization [facility] Address [address] [place] [address] Care Team Providers Name Role Phone Unavailable Primary Care Provider Unavailable Encounter Details Date Type Department Care Team Description 05/13/2015 Hospital Encounter HX [facility] Jeevan Gallegos M .D., M.P.H. [address] [place] [address] [phone] (Wo rk) Social History Tobacco Use Types Packs/Day Years Used Date Smoking Tobacco: Never Assessed Sex Assigned at Date Recorded Not on file documented as of this encounter Nursing Notes Cecilia Chanel R.N. - 05/13/2015 2:14 PM CDT New Employee Health Screen Patient here for a new employee screen. No significant health history. Quantiferon ordered. Electronically Signed By: CECILIA CHANEL RN On: 05/13/2015 02:15 PM Source: [facility] POWERCHART Document Id: [id number] documented in this encounter Miscellaneous Notes Miscellaneous - Jeevan Gallegos M.D. - 05/15/2015 3:13 PM CDT Results Notification From: JEEVAN GALLEGOS MD To: CECILIA CHANEL RN; Sent: 05/15/2015 15:13:04 CDT ! Show up: 05/15/2015 15:13:04 CDT Subject: Results Notification Actions: Notify patient of results Results: Date Result Name Value Ref Range 05/13/2015 14:29 Brian Negative (Negative - ) 05/13/2015 14:29 TB Ag Value-Rock -0.01 IntU/ml Source: [facility] POWERCHART Document Id: [id number] Electronically signed by Conversion, [employer] [id number] at 01/03/2017 3:40 AM CDT documented in this encounter Plan of Treatment Not on filedocumented as of this encounter Procedures Procedure Name Priority Date/Time Associated Diagnosis Comme nts QUANTIFERON-TB GOLD Routine 05/13/2015 2:29 PM Re sults for this PLUS, B CDT procedure are i n the results section. documented in this encounter Results QuantiFERON-TB Gold In-Tube, B (05/13/2015 2:29 PM CDT) P athologist Signature HX Negative Negative POWERCHART Stacey leia HXTB Ag -0.01 INTUML POWERCHART Stephanie Comment: ADDITIONAL INFORMATIO N This is a qualitative test. The TB antig en IU/mL value is required for documentation on certain go vernment reporting forms (e.g., Form I-693), but this value should not be used to monitor disease progression or respon se to therapy. Diagnosing or excluding tuberculosis dis ease, and assessing the probability of LTBI, require a combi nation of epidemiological, historical, medical, an d diagnostic findings that should be taken into accou nt when interpreting QuantiFERON-TB results. Test Performed by: [address] [address] Phone Technician: Wilton Burgos II, M.D., Ph.D. Specimen (Source) Anatomical Collection Method Collection Time Re ceived Time Location / / Volume Laterality Blood 05/13/2015 2:29 PM CDT Jeevan Gallegos M.D., M.P.H. LAB MICROBIOLOGY - BLOOD O RDERABLES Performing Organization Address City/State/ZIP Code Phon e Number POWERCHART documented in this encounter Visit Diagnoses Not on filedocumented in this encounter
== END 2022-06-29 16:05 | disposition home or self-care (01) ==
LOC: US 16:07
PROVIDERS: Visit Provider Midwife
DX: Z34.92 Encounter for supervision of normal pregnancy, unspecified, second trimester (principal); Z3A.20 20 weeks gestation of pregnancy
CPT/HCPCS: 76805

== ENCOUNTER 2022-11-26 16:30 | Outpatient (CLI) | payer OTHER, SELFPAY ==
--- NOTE | 2022-11-26 | CRLHL7_ITS ---
For Patients: As a result of the Cures Act, medical imaging exams and procedure reports are released immediately into your electronic medical record. You may view this report before your referring provider. If you have questions, please contact your health care provider. INDICATION: Post dates TECHNIQUE: Ultrasound OB pelvis transabdominal. Real time raygoza scale imaging of the fetus was performed with grayscale and color Doppler imaging without stress testing. COMPARISON: None. FINDINGS: Sonographic imaging demonstrates a single living intrauterine gestation. Fetus demonstrates a regular cardiac rate of 176 beats per minute. Fetus has a vertex orientation. The placenta lies anterior. The single deepest pocket measures 5.6 cm which is within normal limits. FLORESITA is 25.9 cm. Gross body movements: 2/2 tone: 2/2 Respiratory activity: 0/2 Amniotic Fluid: 2/2 Total: 6/8 IMPRESSION: 1. Biophysical profile total score of 6/8, due to decreased respiratory activity (0/2). 2. Amniotic fluid is within normal limits when evaluating the single deepest pocket which is 5.6 cm, however appears elevated when measuring the FLORESITA which is 25.9 cm. Dictated by Christina Verde MD @ 11/26/2022 7:03:12 PM (Electronically Signed)
== END 2022-11-26 16:31 | disposition home or self-care (01) ==
LOC: US 16:33
PROVIDERS: Visit Provider Midwife
DX: O48.0 Post-term pregnancy (principal)
CPT/HCPCS: 76819

== ENCOUNTER 2022-11-26 17:50 | Outpatient (CLI) | payer OTHER, SELFPAY ==
[2022-11-26 18:02] VITALS: BP 117/76; PULSE 96
[2022-11-26 18:03] VITALS: RESP 16; TEMP 36.7
--- NOTE | 2022-11-26 19:04 | PM.OBLDTN ---
OB - Triage/Final Diagnosis Visit Information Date Seen: 11/26/22 Narrative: Dayanara is a 31 yo at 42 1/7 weeks gestation that presented to radiology this afternoon for a BPP for post-dates. The BPP was 6/8 with 2 off for breathing. Ultrasound also identified polyhydramnios with FLORESITA of 25.9, CPM and noted nuchal cord x 1. I was notified by radiology per patient and home Substance Abuse Specialist's preference to discuss results and my recommendations. Results were discussed with patient in ultrasound room with radiologist present. We discussed the biggest risk of polyhydramnios being cord prolapse. Briefly reviewed other risks including failure of fetus to descent in the pelvis, increased risk of breech presentation, and risk of cord accident. My recommendation with a BPP of 6/8 is an NST however, with polyhydramnios the recommendation is induction of labor. We discussed that this would be my recommendation at any gestation after 39 0/7 weeks due to the risks listed above. Discussed that that one of the reasons labor may not have began may be due to the excessive fluid and the inability for the baby to be engaged in the pelvis. Patient reports understanding but does not desire to remain in the hospital or be induced. She is agreeable to non-stress test. I did communicate the results via phone to Kaley Montana CPM. She said they would plan for discharge of her home if NST is reactive and plan for out of hospital IOL tomorrow. NST was initially 165 but with positioning was reactive with baseline of 145, accels present, no decelerations, and occasional contractions not noted by patient. Results shared with home Substance Abuse Specialist. Shared findings with patient who desires to go home. Reviewed my recommendation of IOL but discussed if she desires to do out of hospital induction that I would want her to sign an AMA form and follow-up with her home Substance Abuse Specialist. She agrees with plan, AMA form signed, and discharged home. Plan was discussed with OB cash reconciliation specialist, Dr. Smiley who agrees with recommendation of IOL based on polyhydramnios and post-dates and she is aware of patient plan to discharge home against medical advise. She is currently a patient of Kaley Montana of [facility]. She has had routine care with her. She has had 4 previous vaginal deliveries. Her first three births were at [facility]. The 4th happened precipitously at home. She decided that she preferred a home for her 5th delivery and has been seeing a home CPM. She reports that her due date is based off of ovulation dates. Her has been relatively uncomplicated however I do not have any medical records. Reason for evaluation: other (BPP 01/13, ) Evaluation Vital signs: Vital Signs - 24 hr 11/26/22 18:02 11/26/22 18:03 Temperature 98.1 F Pulse Rate 96 Respiratory Rate 16 Blood Pressure 117/76 Fetus (Single) Heart Rate Baseline: 145 Clerical Manager Variability: Moderate (6-25) Monitor Accelerations: Present Monitor Decelerations: None Final Diagnosis (1) Polyhydramnios: Status: Acute (2) Post term at 42 weeks gestation: Status: Acute (3) NST (non-stress test) reactive on surveillance: Status: Acute
--- NOTE | 2022-11-26 19:45 | PC.OBNST ---
NST Note NST Note Start: 11/26/22 18:04 Freq: ONCE Status: Active Protocol: Document 11/26/22 19:31 MARK (Rec: 11/26/22 19:32 JRRichard [id number]) NST Note 5 Para (# of births) 4 EDC 11/11/22 Gestational Age In Weeks & Days 42 Weeks & 1 Days Patient Presented with Complaint(s) of Other Other Complaints BPP 01/13. Polyhydramnios. Reactive Yes Appropriate for Gestational Age Yes ZAID Burrows RN Date 11/26/22 Reactive Yes Appropriate for Gestational Age Yes ZAID Burrows RN Date 11/26/22 OB NST charge Yes Complete NST Note via Write Note Yes The provider's electronic signature indicates the NST is reactive/appropriate for gestational age. *Note to provider: If an addendum is required, open the patient's chart and click on the note under the Nurse/Allied Health tab.
== END 2022-11-26 19:50 | disposition left against medical advice (07) ==
LOC: OB OUT 17:58 → OB 17:59
PROVIDERS: Visit Provider Advanced Practice Midwife
DX: O48.0 Post-term pregnancy (principal); Z3A.42 42 weeks gestation of pregnancy
CPT/HCPCS: 59025; 99213